=== PATIENT | male | born 1960 | race African-American/Black ===

== ENCOUNTER 2018-10-25 04:01 | Inpatient (IN) | payer MEDICAID, OTHER ==
[~2018-10-25] VITALS: Ht 172.7 cm; Wt 85.7 kg
[2018-10-25] MEDS ORDERED: DIPHENHYDRAMINE 50MG/ML VIAL IM ONE (04:30)
[2018-10-25] MEDS ORDERED: HALOPERIDOL LACTATE 5MG/ML VIAL IM ONE ×2 (04:30→04:40)
[2018-10-25] MEDS ORDERED: DIPHENHYDRAMINE 50MG/ML VIAL ONE (04:40)
[2018-10-25 06:18] LABS: BASOPHILS % 0.2 % (0.0-2.0); HEMATOCRIT. 36.9 % (42.0-52.0); LYMPHOCYTES % 21.3 % (20.0-50.0); MEAN CORPUSCULAR HEMOGLOBIN 27.9 pg (28.0-32.0); MEAN CORPUSCULAR VOLUME 85.7 fL (80.0-94.0); MEAN PLATELET VOLUME 8.9 fl (7.4-10.4); MONOCYTES % 12.1 % (2.0-8.0); NEUTROPHILS % 66.4 % (40.0-76.0); PLATELET 142 x1000/uL (130-400); RED BLOOD CELL COUNT 4.31 mill/uL (4.7-6.1); RED CELL DISTRIBUTION WIDTH 15.2 % (11.6-14.6)
[2018-10-25 06:20] LABS: CHLORIDE 107 mEq/L (98-107)
[2018-10-25 06:27] LABS: ETHANOL BLOOD < 10 mg/dL
[2018-10-25] MEDS ORDERED: LOPERAMIDE 2 MG/10 ML UDC PO ONE (07:30)
[2018-10-25] MEDS ORDERED: SODIUM CHLORIDE 0.9% 1,000 ML IV ONE (09:42)
[2018-10-25 12:08] LABS: CLARITY URINE CLEAR (CLEAR); COLOR URINE YELLOW (YELLOW); KETONES URINE 3+ (NEGATIVE); LEUKOCYTE ESTERASE URINE NEGATIVE (NEGATIVE); NITRITE URINE NEGATIVE (NEGATIVE); OCCULT BLOOD URINE 2+ (NEGATIVE); PROTEIN URINE 1+ (NEGATIVE); SPECIFIC GRAVITY URINE 1.025 (1.005-1.030)
[2018-10-25 12:31] LABS: *AMPHETAMINES SCREEN URINE PRESUMTIVE POSITIVE (NEGATIVE); CANNABINOID URINE SCREEN NEGATIVE (NEGATIVE); METHADONE URINE SCREEN NEGATIVE (NEGATIVE); OPIATES URINE SCREEN NEGATIVE (NEGATIVE)
[2018-10-25 12:32] LABS: *BENZODIAZEPINES SCREEN URINE NEGATIVE (NEGATIVE)
[2018-10-25 12:33] LABS: *BARBITURATES SCREEN URINE NEGATIVE (NEGATIVE)
[2018-10-25 12:34] LABS: *COCAINE SCREEN URINE PRESUMTIVE POSITIVE (NEGATIVE)
[2018-10-25 12:36] LABS: PHENCYCLIDINE URINE SCREEN NEGATIVE (NEGATIVE)
[2018-10-25] MEDS ORDERED: ACETAMINOPHEN 325MG TABLET PO PRN ×2 (14:45→16:30)
[2018-10-25] MEDS ORDERED: GUAIFENESIN 200MG/10ML SUGAR FREE UDC PO PRN (16:30)
[2018-10-25] MEDS ORDERED: ONDANSETRON HCL 4MG/2ML INJ IV PRN (16:30)
[2018-10-25] MEDS ORDERED: DIPHENHYDRAMINE 50MG/ML VIAL IV PRN (16:30)
[2018-10-25] MEDS ORDERED: IPRATROPIUM/ALBUTEROL 0.5-3(2.5)MG/3ML NEB INH PRN (16:30)
[2018-10-25] MEDS ORDERED: MAGNESIUM/ALUMINUM HYDROXIDE/SIMETHICONE 30ML UDC PO PRN (16:30)
[2018-10-25] MEDS ORDERED: ACETAMINOPHEN 650MG SUPP PR PRN (16:30)
[2018-10-25] MEDS ORDERED: ACETAMINOPHEN 650MG/20.3ML UDC GT PRN (16:30)
[2018-10-25] MEDS ORDERED: DOCUSATE SODIUM 100MG CAPSULE PO PRN (16:30)
[2018-10-25] MEDS ORDERED: NA PHOS,M-B/NA PHOS,DI-BA ENEMA 118ML PR PRN (16:30)
[2018-10-25 20:00] VITALS: BP 103/63
[2018-10-25] MEDS ORDERED: POTASSIUM CHLORIDE 20MEQ TABLET SR PO NR (20:00)
[2018-10-25] MEDS: ENOXAPARIN 40MG/0.4ML SYR SUBCUT SCH (22:05)
[2018-10-25] MEDS: SODIUM CHLORIDE 0.45% 1,000 ML IV SCH (22:11)
[2018-10-25] MEDS: SODIUM CHLORIDE 0.9% INJ 3ML FLUSH IVF SCH (22:11)
[2018-10-25 23:19] VITALS: BP 103/63
[2018-10-25] MEDS ORDERED: DOLU50TA PO (23:35)
[2018-10-25] MEDS ORDERED: CARV3.1242 PO (23:35)
[2018-10-25] MEDS ORDERED: ASPI-1158 PO (23:35)
[2018-10-25] MEDS ORDERED: SPIR25TA6 MT (23:35)
[2018-10-25] MEDS ORDERED: MECL12.584 PO (23:35)
[2018-10-25] MEDS ORDERED: LISI-186 PO (23:35)
[2018-10-25] MEDS ORDERED: EMTR1TAB13 PO (23:35)
[2018-10-25] MEDS ORDERED: RIVA20TA PO (23:35)
[2018-10-25] MEDS ORDERED: NITR0.4T SL (23:35)
[2018-10-25 23:43] LABS: CREATINE KINASE MB FRACTION 22.3 ng/mL (0.5-3.6)
[2018-10-26] VITALS: BP 128/76
[2018-10-26 00:02] LABS: CREATINE KINASE 4196 IU/L (39-308)
[2018-10-26] MEDS: SODIUM CHLORIDE 0.9% INJ 3ML FLUSH IVF SCH ×3 (06:00→21:42)
[2018-10-26 07:27] LABS: BASOPHILS % 0.2 % (0.0-2.0); EOSINOPHILS % 0.5 % (0.0-5.0); HEMATOCRIT. 34.3 % (42.0-52.0); HEMOGLOBIN. 11.2 g/dL (14.0-18.0); LYMPHOCYTES % 17.6 % (20.0-50.0); MEAN CORPUSCULAR HEMOGLOBIN 27.8 pg (28.0-32.0); MEAN CORPUSCULAR VOLUME 85.3 fL (80.0-94.0); MONOCYTES % 7.4 % (2.0-8.0); NEUTROPHILS % 74.3 % (40.0-76.0); PLATELET 149 x1000/uL (130-400); RED BLOOD CELL COUNT 4.02 mill/uL (4.7-6.1); RED CELL DISTRIBUTION WIDTH 15.4 % (11.6-14.6)
[2018-10-26 07:44] LABS: CHLORIDE 108 mEq/L (98-107)
[2018-10-26 07:51] LABS: HDL CHOLESTEROL 39 mg/dL (40-59); LDL CHOLESTEROL 54 mg/dL (5-100)
[2018-10-26 07:55] LABS: CREATINE KINASE MB FRACTION 10.1 ng/mL (0.5-3.6)
[2018-10-26 08:00] VITALS: BP 107/66
[2018-10-26 08:05] LABS: CREATINE KINASE 2823 IU/L (39-308)
[2018-10-26 12:00] VITALS: BP 198/64
[2018-10-26 16:00] VITALS: BP 118/67
[2018-10-26 20:00] VITALS: BP 116/76
[2018-10-26] MEDS: ENOXAPARIN 40MG/0.4ML SYR SUBCUT SCH (20:15)
[2018-10-26 21:00] VITALS: BP 115/75
[2018-10-26] MEDS: SODIUM CHLORIDE 0.45% 1,000 ML IV SCH (21:42)
[2018-10-26] MEDS: HYDROCODONE/ACETAMINOPHEN 5/325MG TABLET PO PRN (22:27)
[2018-10-27] VITALS: BP 107/68
[2018-10-27 04:00] VITALS: BP_SYST 110; BP_SYST 137; BP_DIAS 43; BP_DIAS 71
[2018-10-27] MEDS: SODIUM CHLORIDE 0.9% INJ 3ML FLUSH IVF SCH ×3 (06:34→21:01)
[2018-10-27 08:00] VITALS: BP 115/82
[2018-10-27] MEDS: SODIUM CHLORIDE 0.45% 1,000 ML IV SCH (10:27)
[2018-10-27 12:00] VITALS: BP 107/68
[2018-10-27 12:30] LABS: T4 FREE 1.19 ng/dL (0.76-1.46)
[2018-10-27] MEDS: CARVEDILOL 3.125 MG TABLET PO SCH (15:00)
[2018-10-27] MEDS ORDERED: MECLIZINE 25MG TABLET PO PRN (15:00)
[2018-10-27] MEDS: LISINOPRIL 5MG TABLET PO SCH (15:00)
[2018-10-27 16:00] VITALS: BP 128/79
[2018-10-27 16:01] LABS: CREATINE KINASE MB FRACTION 3.5 ng/mL (0.5-3.6)
[2018-10-27 16:13] LABS: CREATINE KINASE 1017 IU/L (39-308)
[2018-10-27] MEDS ORDERED: RIVAROXABAN 20 MG TABLET PO SCH (17:00)
[2018-10-27] MEDS ORDERED: DIGOXIN 125MCG TABLET PO SCH (18:00)
[2018-10-27] MEDS: HYDROCODONE/ACETAMINOPHEN 5/325MG TABLET PO PRN (18:13)
[2018-10-27 19:12] LABS: BASOPHILS % 0.4 % (0.0-2.0); HEMOGLOBIN. 11.3 g/dL (14.0-18.0); LYMPHOCYTES % 24.9 % (20.0-50.0); MEAN CORPUSCULAR HEMOGLOBIN 27.8 pg (28.0-32.0); MEAN PLATELET VOLUME 8.8 fl (7.4-10.4); MONOCYTES % 10.8 % (2.0-8.0); NEUTROPHILS % 61.9 % (40.0-76.0); PLATELET 164 x1000/uL (130-400); RED BLOOD CELL COUNT 4.07 mill/uL (4.7-6.1); RED CELL DISTRIBUTION WIDTH 15.3 % (11.6-14.6)
[2018-10-27 19:19] LABS: CHLORIDE 107 mEq/L (98-107)
[2018-10-27 19:28] LABS: CREATINE KINASE 947 IU/L (39-308)
[2018-10-27 20:00] VITALS: BP 142/79
[2018-10-27 23:55] LABS: CREATINE KINASE 789 IU/L (39-308)
[2018-10-27 23:56] LABS: CREATINE KINASE MB FRACTION 3.1 ng/mL (0.5-3.6)
[2018-10-28] VITALS: BP 112/80
[2018-10-28] MEDS: SODIUM CHLORIDE 0.45% 1,000 ML IV SCH (01:02)
[2018-10-28] MEDS: HYDROCODONE/ACETAMINOPHEN 5/325MG TABLET PO PRN (02:28)
[2018-10-28 04:00] VITALS: BP 129/82
[2018-10-28] MEDS: SODIUM CHLORIDE 0.9% INJ 3ML FLUSH IVF SCH (05:28)
[2018-10-28 06:14] LABS: CHLORIDE 106 mEq/L (98-107)
[2018-10-28 06:22] LABS: BASOPHILS % 0.3 % (0.0-2.0); CREATINE KINASE 650 IU/L (39-308); EOSINOPHILS % 2.8 % (0.0-5.0); HEMATOCRIT. 34.8 % (42.0-52.0); HEMOGLOBIN. 11.3 g/dL (14.0-18.0); LYMPHOCYTES % 33.8 % (20.0-50.0); MEAN CORPUSCULAR HEMOGLOBIN 27.9 pg (28.0-32.0); MEAN CORPUSCULAR VOLUME 85.9 fL (80.0-94.0); MEAN PLATELET VOLUME 8.6 fl (7.4-10.4); MONOCYTES % 14.3 % (2.0-8.0); NEUTROPHILS % 48.8 % (40.0-76.0); PLATELET 167 x1000/uL (130-400); RED BLOOD CELL COUNT 4.06 mill/uL (4.7-6.1); RED CELL DISTRIBUTION WIDTH 15.3 % (11.6-14.6)
[2018-10-28 06:24] LABS: CREATINE KINASE MB FRACTION 2.8 ng/mL (0.5-3.6)
[2018-10-28 08:15] VITALS: BP 116/78
[2018-10-28] MEDS: CARVEDILOL 3.125 MG TABLET PO SCH (09:47)
[2018-10-28 12:00] VITALS: BP 139/90
[2018-10-28] MEDS: LISINOPRIL 5MG TABLET PO SCH (13:13)
[2018-10-28 14:15] VITALS: BP 139/90
== END 2018-10-28 14:55 | disposition home or self-care (01) | DRG 469 ==
LOC: ER 04:56 → 6EST 14:48 → ENRESERV 16:40 → 5WST 10-26 20:45
PROVIDERS: ADMIT Family Medicine; ATTEND Family Medicine
PROC: 4B02XTZ Measurement of Cardiac Defibrillator, External Approach (ICD-10-PCS; principal; 2018-10-27)
DX: N17.0 Acute kidney failure with tubular necrosis (principal); G92 Toxic encephalopathy; I42.9 Cardiomyopathy, unspecified; I11.0 Hypertensive heart disease with heart failure; I50.9 Heart failure, unspecified; M62.82 Rhabdomyolysis; E86.0 Dehydration; I48.91 Unspecified atrial fibrillation; B19.20 Unspecified viral hepatitis C without hepatic coma; E87.6 Hypokalemia; F15.10 Other stimulant abuse, uncomplicated; F14.10 Cocaine abuse, uncomplicated; F10.129 Alcohol abuse with intoxication, unspecified; I25.2 Old myocardial infarction; Z59.0 Homelessness; Z95.810 Presence of automatic (implantable) cardiac defibrillator; Z79.899 Other long term (current) drug therapy; Z79.82 Long term (current) use of aspirin
CPT/HCPCS: 36415; 71045; 76770; 80048; 80061; 80305; 82550; 82553; 83036; 83880; 84439; 84443; 84484; 85379; 93005; 93306; 96374; 99285; J1200; J1630; J1650